=== PATIENT | female | born 1960 | race Caucasian/White ===

== ENCOUNTER 2016-11-25 13:43 | Inpatient (IN) | payer OTHER, BC ==
--- NOTE | ~2016-11-25 | DS ---
Discharge Summary [facility] [address] [place]. [address] NAME: JOSSY JAFFE : 60 STATUS : DIS IN PAT#: [id number] AGE: 56 ADM/REG DATE : 11/25/16 MR#: [id number] REPORT SERV DATE: 12/28/16 DICTATED BY: ADY HERBERT DATE: 12/27/16 REPORT STATUS : Draft TRANSCRIBED BY: MODL DATE: 12/27/16 ADMISSION DATE: 11/25/2016 DISCHARGE DATE: 11/30/2016 SUMMARY The patient is a 56-year-old, who was diagnosed with breast cancer, followed by [facility]. She came in on 11/22/2016 with altered mental status, URI, and pneumonia. She remained confused and uncomfortable, and on 11/25, a decision was made to change her to general inpatient [facility]. She was admitted by Dr. Higuera and followed later by Dr. Art until I came back. She had been previously treated with chemotherapy and was felt to be admitted with a febrile neutropenia. Comorbid conditions include hepatitis C with cirrhosis, COPD, dementia, and Parkinson disease. She was on a Dilaudid [employer], which we tried to keep her pain under control. She also got Ativan for agitation and Zofran for nausea. The patient peacefully on 11/29/2016. FINAL DIAGNOSIS: Widely metastatic breast cancer. GP/MODL Ady Herbert MD / [id number] CC: Ady Herbert MD
[~2016-11-25 13:43] MED LIST: ABILIFY20 MG PO; ABILIFY30 MG PO; ABILIFY5 PO; ADVAIR250 INH; ALBUTEROL MDI; AMOXIL500 MG PO; ARIMIDEX1 PO; AROMASIN25 PO; AT25 PO; AUG875 PO; CELEXA20 PO; CELEXA40 MG PO; CHEMOTHERAPY IV; COG2 PO; COGEN1 PO; COMP10B PO; CONSTULOSE PO; CYPROHEPTAD4 MG OR; DEPAKOTEER PO; DIL2TAB PO; EFFEX75 PO; ENULOSE PO; FLEX PO; FLORASTOR250 MG PO; HABIT21 TOP; HORMONE INJECTION IM; HYDROCODONE 10/325 PO; INDE80 PO; LACT30UDL PO; LAMICTAL25 PO; LORTAB10 PO; LOTENSIN HCT1 TA3 PO; MAGIC MOUTHWASH PO; MARINOL10 MG PO; MIRALAXPKT PO; MSCONT15 PO; MSCONT60 PO; MSCONTIN PO; MULTIVITAMI1 PO; NASONEX NAS; NEUR300 PO; NEUR600 PO; NEUR800 PO; NICODERM C21 MG/241 TOP; NOLV10 PO; NORCO1 TAB PO; PERCOCET1 TA4 PO; PERMETHRIN5 % EX; PERMETHRIN5 % T; PR25 PO; PRIN20 PO; PROAIR HFA INH; RANITIDINE300 MG PO; ROXICODONE15 MG PO; SEROQUEL50 MG PO; SOMATAB PO; SYMBICORT 160/41 INH INH; TAMOXIFEN10 MG OR; TRAZ50 PO; TRAZODONE150 MG PO; TRIAMCINOLON0.025 % EX; TRIDERM0.1 % T; VENTOLIN HFA INH; VIT B 12 PO; VIT B PO; XANAX1 MG PO; XARELTO15 MG PO; XARELTO20 MG PO; ZANTAC300 MG PO; ZESTRIL20 MG PO; ZOFRAN8 PO
== END 2016-11-30 00:16 | disposition expired | DRG 597 ==
LOC: 4EA 13:43
DX: C50.919 Malignant neoplasm of unspecified site of unspecified female breast (principal); G93.40 Encephalopathy, unspecified; E43 Unspecified severe protein-calorie malnutrition; A41.9 Sepsis, unspecified organism; D61.810 Antineoplastic chemotherapy induced pancytopenia; J18.9 Pneumonia, unspecified organism; C78.7 Secondary malignant neoplasm of liver and intrahepatic bile duct; I82.90 Acute embolism and thrombosis of unspecified vein; Z68.1 Body mass index [BMI] 19.9 or less, adult; K74.60 Unspecified cirrhosis of liver; D70.9 Neutropenia, unspecified; Z51.5 Encounter for palliative care; E87.6 Hypokalemia; K21.9 Gastro-esophageal reflux disease without esophagitis; Z66 Do not resuscitate; Z17.0 Estrogen receptor positive status [ER+]; B19.20 Unspecified viral hepatitis C without hepatic coma; J44.9 Chronic obstructive pulmonary disease, unspecified; F31.9 Bipolar disorder, unspecified
CPT/HCPCS: 94660; A9270-GY; J1170; J1630